=== PATIENT | female | born 1990 | race American Indian/Alaskan Native ===

== ENCOUNTER 2019-07-14 19:03 | Emergency (ER) | payer SELFPAY ==
[2019-07-14 19:12] VITALS: BP 136/51
[2019-07-14] MEDS ORDERED: ACETAMINOPHEN 325 MG TAB ONE ×2 (19:17→19:19)
[2019-07-14] MEDS ORDERED: ASPIRIN 325 MG TAB ONE (19:19)
[2019-07-14] MEDS ORDERED: ACETAMINOPHEN 325 MG TAB PO ONE (19:21)
[2019-07-14 19:59] LABS: Hematocrit 35.4 % (30.3-42.9); Mean Corpuscular HGB Conc 34 % (30-34); Mean Corpuscular Volume 87 fl (79-97); Platelet Count 227 K/mm3 (140-440); Red Blood Count 4.07 M/mm3 (3.65-5.03); Red Cell Distribution Width 15.9 % (13.2-15.2)
[2019-07-14 20:13] LABS: Alanine Aminotransferase 14 units/L (7-56); Albumin 4.2 g/dL (3.9-5); BUN/Creatinine Ratio 16; Blood Urea Nitrogen 11 mg/dL (7-17); Hemolysis Index 4
--- NOTE | 2019-07-14 20:23 | XRay Report ---
CHEST 2 VIEWS INDICATION / CLINICAL INFORMATION: MAIN: fever; back pain, fever. COMPARISON: None available. FINDINGS: SUPPORT DEVICES: None. HEART / MEDIASTINUM: No significant abnormality. LUNGS / PLEURA: No significant pulmonary or pleural abnormality. No pneumothorax. ADDITIONAL FINDINGS: No significant additional findings. IMPRESSION: 1. No significant abnormality. No evidence of pneumonia at this time. Signer Name: Alana Duvall MD Signed: 07/14/2019 8:18 PM Workstation Name: [id number]
[2019-07-14 20:24] LABS: Bacteria,Urine 3+ /HPF (Negative); Bilirubin,Urine NEG (Negative); Blood,Urine NEG (Negative); Color,Urine Yellow (Yellow); Mucus,Urine FEW /HPF; Protein,Urine <15 mg/dL mg/dL (Negative)
--- NOTE | 2019-07-14 21:08 | Emergency Department Report ---
ED Back Pain/Injury HPI - General Chief Complaint: Fever Stated Complaint: FEVER Time Seen by Provider: 07/14/19 20:16 Source: patient Limitations: No Limitations - History of Present Illness Initial Comments: This is a 28-year-old female with no prior medical history who presents the ED complaining left-sided back pain that began yesterday. Patient denies any injury, trauma or falls. Patient notes that she had a slight burning with urination otherwise no other symptoms she denies fever/chills/nausea vomiting abdominal pain. Patient also denies upper respiratory symptoms such as cough, runny nose, recent travel, being around anyone that is been sick MD Complaint: back pain - Related Data Previous Rx's Medication Instructions Recorded Last Taken Type Acetaminophen/Codeine [Tylenol #3] 1 tab PO Q6H PRN #20 tab 03/28/15 Unknown Rx Amoxicillin [Trimox CAP] 500 mg PO Q8H #30 capsule 03/28/15 Unknown Rx Loratadine (Nf) [Claritin] 10 mg PO DAILY #30 tablet 03/28/15 Unknown Rx predniSONE [Deltasone] 40 mg PO QDAY #10 tab 03/28/15 Unknown Rx Fluconazole [Diflucan TAB] 150 mg PO ONCE #1 tablet 07/14/19 Unknown Rx Nitrofurantoin [place]/M-Cryst 100 mg PO Q12HR #14 capsule 07/14/19 Unknown Rx [Macrobid CAP] Allergies Allergy/AdvReac Type Severity Reaction Status Date / Time No Known Allergies Allergy Unverified 03/28/15 11:05 ED Review of Systems ROS: Stated complaint: FEVER Other details as noted in HPI Comment: All other systems reviewed and negative ED Past Medical Hx Family history: no significant family history ED Back Pain Physical Exam - Exam General: Vital signs noted. No distress. Alert and acting appropriately. Left-sided CVA tenderness Back/Abdomen: No Abdominal Tenderness, No Perithoracic Tenderness, No Perilumbar Tenderness, No Sacroiliac Tenderness, No Flank Tenderness, No Straight Leg Raise Pain Neuro: Yes Normal Sensation, Yes Normal DTR's, Yes Normal Gait, No Motor Weakness ED Course Vital Signs 07/14/19 07/14/19 07/14/19 19:10 19:22 20:14 Temperature 100.8 F H 99.4 F Pulse Rate 108 H 101 H Respiratory 20 18 17 Rate Blood Pressure 136/51 O2 Sat by Pulse 98 99 Oximetry Ed Back Pain Tests - Tests Tests: Normal X Rays (CXR wnl), Abnormal UA (3+ bacteria, yeast ) ED Medical Decision Making - Lab Data Result diagrams: 07/14/19 19:26 07/14/19 19:26 - Radiology Data Radiology results: report reviewed, image reviewed Fluoro Time In Minutes: CHEST 2 VIEWS INDICATION / CLINICAL INFORMATION: MAIN: fever; back pain, fever. COMPARISON: None available. FINDINGS: SUPPORT DEVICES: None. HEART / MEDIASTINUM: No significant abnormality. LUNGS / PLEURA: No significant pulmonary or pleural abnormality. No pneumothorax. ADDITIONAL FINDINGS: No significant additional findings. IMPRESSION: 1. No significant abnormality. No evidence of pneumonia at this time. Signer Name: Alana Duvall MD Signed: 07/14/2019 8:18 PM Workstation Name: [id number] Transcribed By: Dictated By: Alana Duvall MD Electronically Authenticated By: Alana Duvall MD Signed Date/Time: 07/14/19 2018 - Medical Decision Making This 28-year-old female who presented with left-sided low back pain. Urinalysis was positive for 3+ bacteria and yeast. Suggestive of a UTI Chest x-ray shows no acute findings. Patient given Tylenol in the ED, fever reduced during ED stay. Discussed treatment with antibiotics and to take all prescription. Discussed with patient to follow-up with primary care physician. Discussed with patient to take Tylenol as needed for fever and pain. Critical care attestation.: If time is entered above; I have spent that time in minutes in the direct care of this critically ill patient, excluding procedure time. ED Disposition Clinical Impression: Acute cystitis, Yeast cystitis Disposition: DC-01 TO HOME OR SELFCARE Is pt being admited?: No Does the pt Need Aspirin: No Condition: Stable Instructions: Urinary Tract Infection in Women (ED), Flank Pain (ED) Additional Instructions: Make sure to follow up with the primary care physician as discussed. Take all your medications as you've been prescribed. If you have any worsening symptoms or develop new symptoms please return to ED immediately. Prescriptions: Fluconazole [Diflucan TAB] 150 mg PO ONCE #1 tablet Nitrofurantoin [place]/M-Cryst [Macrobid CAP] 100 mg PO Q12HR #14 capsule Referrals: PRIMARY CARE, [Primary Care Provider] - 3-5 Days [facility] [Outside] - 3-5 Days [facility] [Outside] - 3-5 Days Forms: Work/School Release Form(ED) Time of Disposition: 21:09
== END 2019-07-14 21:19 | disposition home or self-care (01) ==
LOC: ED 19:03
DX: N30.00 Acute cystitis without hematuria (principal); B37.41 Candidal cystitis and urethritis; Z79.2 Long term (current) use of antibiotics; Z79.899 Other long term (current) drug therapy
CPT/HCPCS: 36415; 71046; 80053; 81001; 85027